=== PATIENT | male | born 1950 | race African-American/Black ===

== ENCOUNTER 2016-09-28 13:58 | Emergency (ER) | payer MEDICARE, OTHER ==
[~2016-09-28 13:58] MED LIST: ASAB PO; CADUET10 MG/40 M PO; HYZAAR 100/25 T1 TAB PO; MULTIPLE VIT PO; TOPXL100 PO; TRAVOPROST OPH; Z300 PO
[2017-01-25] MEDS ORDERED: MULTIPLE VIT PO (11:32)
[2017-01-27] MEDS ORDERED: ZOFRAN4 PO (12:31)
[2017-01-27] MEDS ORDERED: C5 (12:31)
[2017-01-27] MEDS ORDERED: PCET PO (12:31)
== END 2016-09-28 14:30 | disposition home or self-care (01) ==
LOC: ER 13:58
DX: S39.011A Strain of muscle, fascia and tendon of abdomen, initial encounter (principal); I10 Essential (primary) hypertension; Z88.8 Allergy status to other drugs, medicaments and biological substances; Z79.899 Other long term (current) drug therapy; Z79.82 Long term (current) use of aspirin; X58.XXXA Exposure to other specified factors, initial encounter
CPT/HCPCS: 99283